=== PATIENT | male | born 1980 | race Caucasian/White ===

== ENCOUNTER 2021-10-20 08:54 | Inpatient (IN) | payer SELFPAY ==
[2021-10-20] MEDS ORDERED: Sodium Chloride 0.9% 10 ML Syringe FLUSH PRN (09:29)
[2021-10-20] MEDS ORDERED: Sodium Chloride 0.9% 2.5 ML Syringe FLUSH PRN (09:29)
[2021-10-20] MEDS ORDERED: Enoxaparin 150 MG/1 ML Syringe SUBCUT ONE (12:05)
[2021-10-20] MEDS ORDERED: Piperacillin/Tazobactam 3.375 GM in Sodium Chloride 0.9% 50 ML IV ONE (12:06)
[2021-10-20] MEDS ORDERED: VANCOmycin 1.75 GM/350 ML 1.75 GM in Premix Bag 1 BAG IV ONE (12:30)
[2021-10-20 13:15] LABS: BLOOD UREA NITROGEN,BUN 16 mg/dL (7.0-18.0); CARBON DIOXIDE,CO2 22.3 mmol/L (21.0-32.0); CHLORIDE,CL 106 mmol/L (98-107); GLUCOSE RANDOM 97 mg/dL (74-106); POTASSIUM,K 3.8 mmol/L (3.5-5.1); SODIUM,NA 141 mmol/L (136-148)
[2021-10-20] MEDS ORDERED: Acetaminophen 325 MG Tab PO PRN (14:14)
[2021-10-20] MEDS ORDERED: Warfarin Sliding Scale PO SCH (14:30)
[2021-10-20] MEDS ORDERED: Albuterol/Ipratropium 3.0-0.5 MG/3 ML Neb Soln NEB PRN (14:30)
[2021-10-20] MEDS: Warfarin Sliding Scale PO SCH (17:40)
[2021-10-20] MEDS ORDERED: Warfarin 10 MG Tab PO SCH (18:00)
[2021-10-20] MEDS: Lactated Ringers 1,000 ML IV SCH (19:00)
[2021-10-20] MEDS: Enoxaparin 100 MG/1 ML Syringe SUBCUT SCH (21:57)
[2021-10-21] MEDS ORDERED: cefTRIAXone 1 GM in Sodium Chloride 0.9% 50 ML IV SCH ×2 (01:00→09:00)
[2021-10-21] MEDS: Lactated Ringers 1,000 ML IV SCH ×2 (04:07→12:14)
[2021-10-21 07:07] LABS: BLOOD UREA NITROGEN,BUN 14 mg/dL (7.0-18.0); CARBON DIOXIDE,CO2 23.5 mmol/L (21.0-32.0); CHLORIDE,CL 107 mmol/L (98-107); GLUCOSE RANDOM 86 mg/dL (74-106); POTASSIUM,K 4.1 mmol/L (3.5-5.1); SODIUM,NA 140 mmol/L (136-148)
[2021-10-21] MEDS ORDERED: Pantoprazole 40 MG in Sodium Chloride 0.9% 10 ML IVPUSH SCH (09:00)
[2021-10-21] MEDS: Enoxaparin 100 MG/1 ML Syringe SUBCUT SCH ×2 (09:00→21:02)
[2021-10-21] MEDS ORDERED: cefTRIAXone 1 GM in Sodium Chloride 0.9% 50 ML IV ONE (14:19)
[2021-10-21] MEDS: VANCOmycin 1.5 GM/300 ML 1.5 GM in Premix Bag 1 BAG IV SCH (15:53)
[2021-10-21] MEDS: Warfarin Sliding Scale PO SCH (17:46)
[2021-10-21] MEDS ORDERED: Warfarin 10 MG Tab PO SCH (18:00)
[2021-10-22] MEDS ORDERED: cefTRIAXone 2 GM in Sodium Chloride 0.9% 100 ML IV SCH (01:00)
[2021-10-22] MEDS: Lactated Ringers 1,000 ML IV SCH ×2 (03:22→15:20)
[2021-10-22] MEDS: VANCOmycin 1.5 GM/300 ML 1.5 GM in Premix Bag 1 BAG IV SCH (03:22)
[2021-10-22 06:37] LABS: BLOOD UREA NITROGEN,BUN 14 mg/dL (7.0-18.0); CARBON DIOXIDE,CO2 22.4 mmol/L (21.0-32.0); CHLORIDE,CL 108 mmol/L (98-107); GLUCOSE RANDOM 98 mg/dL (74-106); SODIUM,NA 139 mmol/L (136-148)
[2021-10-22] MEDS: Pantoprazole 40 MG Tab.CR PO SCH (09:13)
[2021-10-22] MEDS: Enoxaparin 100 MG/1 ML Syringe SUBCUT SCH ×2 (09:13→21:51)
[2021-10-22] MEDS: VANCOmycin 1.75 GM/350 ML 1.75 GM in Premix Bag 1 BAG IV SCH ×2 (11:26→18:31)
[2021-10-22] MEDS ORDERED: Iopamidol 755 MG/ML 500 ML Multipack Bottle IVPUSH STA (16:24)
[2021-10-22] MEDS ORDERED: Warfarin 2.5 MG, Warfarin 10 MG PO SCH ×2 (18:00)
[2021-10-22] MEDS: Warfarin Sliding Scale PO SCH (18:44)
[2021-10-23] MEDS: Lactated Ringers 1,000 ML IV SCH (01:11)
[2021-10-23] MEDS ORDERED: cefTRIAXone 2 GM/50 ML BAG IV SCH (01:30)
[2021-10-23] MEDS: VANCOmycin 1.75 GM/350 ML 1.75 GM in Premix Bag 1 BAG IV SCH ×2 (03:36→13:00)
[2021-10-23 06:22] LABS: BLOOD UREA NITROGEN,BUN 19 mg/dL (7.0-18.0); CARBON DIOXIDE,CO2 23.1 mmol/L (21.0-32.0); CHLORIDE,CL 107 mmol/L (98-107); GLUCOSE RANDOM 97 mg/dL (74-106); SODIUM,NA 138 mmol/L (136-148)
[2021-10-23] MEDS: Pantoprazole 40 MG Tab.CR PO SCH (09:07)
[2021-10-23] MEDS: Enoxaparin 100 MG/1 ML Syringe SUBCUT SCH (09:07)
[2021-10-23] MEDS ORDERED: WARFARIN PO SCH ×2 (13:00)
== END 2021-10-23 13:20 | disposition home or self-care (01) | DRG 603 ==
LOC: MW.ED 08:54 → MW.MS 12:27
PROVIDERS: ADMIT Student in an Organized Health Care Education/Training Program; ATTEND Student in an Organized Health Care Education/Training Program
DX: L03.116 Cellulitis of left lower limb (principal); Z86.718 Personal history of other venous thrombosis and embolism; R79.1 Abnormal coagulation profile; Z95.828 Presence of other vascular implants and grafts; Z79.01 Long term (current) use of anticoagulants; Z79.899 Other long term (current) drug therapy; Z20.822 Contact with and (suspected) exposure to COVID-19; Z86.711 Personal history of pulmonary embolism
CPT/HCPCS: 36415; 73590-26-LT; 73590-LT; 73620-26-LT; 73620-LT; 73702-26-LT; 73702-LT; 80048; 80053; 83605; 85025; 85610; 86140; 87040; 93971-26-LT; 93971-LT; 96365; 96367; 96372; 99221; 99231; 99238; 99283; 99284-25; A9270-GY; C9113; J0696; J1650; J2543; J3370; J3490; J7120; Q9967; U0002

== ENCOUNTER 2021-11-21 07:14 | Emergency (ER) | payer OTHER, MEDICAID | END 2021-11-21 08:59 | disposition home or self-care (01) | LOC: MW.ED 07:14 | DX: S90.31XA Contusion of right foot, initial encounter (principal); D68.9 Coagulation defect, unspecified; Z79.01 Long term (current) use of anticoagulants; Z86.718 Personal history of other venous thrombosis and embolism; W20.8XXA Other cause of strike by thrown, projected or falling object, initial encounter; Y99.0 Civilian activity done for income or pay | CPT/HCPCS: 73630-26-RT; 73630-RT; 99283; 99283-25 ==